=== PATIENT | female | born 1985 | race Two or more races ===

== ENCOUNTER 2018-03-23 13:46 | Emergency (ER) | payer MEDICAID ==
[~2018-03-23] VITALS: Ht 157.5 cm; Wt 65.8 kg
--- NOTE | 2018-03-23 14:11 | NUR ---
Dr. Le here to see pt for MSE.
[2018-03-23] MEDS ORDERED: KETOROLAC TROMETHAMINE 30 MG INJ IVP ONE (14:30)
[2018-03-23] MEDS ORDERED: METOCLOPRAMIDE HCL 10 MG/2 ML VIAL IV ONE (14:30)
[2018-03-23] MEDS ORDERED: KETOROLAC TROMETHAMINE 30 MG INJ ONE (14:35)
[2018-03-23] MEDS ORDERED: METOCLOPRAMIDE HCL 10 MG/2 ML VIAL ONE (14:35)
[2018-03-23 14:53] LABS: CREATININE 0.8 mg/dL (0.6-1.3); POTASSIUM 3.5 mmol/L (3.5-5.1)
[2018-03-23] MEDS: IV NORMAL SALINE 1000 ML BAG IV ONE ×2 (14:54→14:59)
[2018-03-23 15:14] LABS: BASOPHILS # (AUTO) 0.1 K/uL (0.0-8.0); BASOPHILS % (AUTO) 0.8 % (0.0-2.0); EOSINOPHILS # (AUTO) 0.2 K/uL (0.0-0.7); HEMATOCRIT 32.7 % (31.2-41.9); HEMOGLOBIN 10.2 g/dL (10.9-14.3); LYMPHOCYTES # (AUTO) 1.5 K/uL (20.0-40.0); LYMPHOCYTES % (AUTO) 23.6 % (20.5-51.5); MEAN CORPUSCULAR HEMOGLOBIN 20.7 uug (24.7-32.8); MEAN CORPUSCULAR HGB CONC 31 g/dL (32.3-35.6); MEAN CORPUSCULAR VOLUME 66.4 fL (75.5-95.3); MONOCYTES # (AUTO) 0.4 K/uL (2.0-10.0); MONOCYTES % (AUTO) 6.3 % (0.0-11.0); NEUTROPHILS % (AUTO) 65.3 % (38.5-71.5); PLATELET COUNT (AUTO) 374 K/uL (179-408); RED BLOOD CELL COUNT(AUTO) 4.93 MIL/uL (3.63-4.92); WHITE BLOOD COUNT (AUTO) 6.2 K/uL (3.8-11.8)
--- NOTE | 2018-03-23 16:35 | NUR ---
Patient discharged to home in stable conditon. Written and verbal after care instructions given. Patient verbalizes understanding of instructions. Pt to f/u with neurologist as provided by Dr. Le. Addendum: 03/23/18 at 1700 by [email or web address] LEFT AC PERIPHERAL IV REMOVED.
== END 2018-03-23 16:40 | disposition home or self-care (01) ==
LOC: ER 13:50
DX: R51 Headache (principal)
CPT/HCPCS: 36415; 84703; 85025; A4663; J1885; J2765

== ENCOUNTER 2019-09-26 15:10 | Emergency (ER) | payer MEDICAID ==
[~2019-09-26] VITALS: Ht 160 cm; Wt 63.5 kg
--- NOTE | 2019-09-26 16:16 | NUR ---
Patient discharged to home in stable conditon. Written and verbal after care instructions given. Patient verbalizes understanding of instructions. Patient ambulated with stable gait.
[2019-09-26 16:17] VITALS: BP 131/71
== END 2019-09-26 16:17 | disposition home or self-care (01) ==
LOC: ER 15:15
DX: M54.2 Cervicalgia (principal)
CPT/HCPCS: A4663